=== PATIENT | female | born 1970 | race Caucasian/White ===

== ENCOUNTER 2019-10-16 17:41 | Emergency (ER) | payer BC ==
[~2019-10-16] VITALS: Ht 157.5 cm; Wt 92.1 kg
[2019-10-16] MEDS ORDERED: CLONIDINE HCL 0.2 MG TAB PO ONE (19:15)
[2019-10-16] MEDS ORDERED: CLONIDINE HCL 0.1 MG TAB ONE (19:22)
--- NOTE | 2019-10-16 21:20 | NUR ---
DC'D IVSL WITHOUT DIFF. NO BLEEDING/REDNESS/SWELLING TO SITE. CATH INTACT.
[2019-10-16 21:24] VITALS: BP 183/84
== END 2019-10-16 21:21 | disposition home or self-care (01) ==
LOC: FSED 17:41
DX: R30.0 Dysuria (principal); N30.91 Cystitis, unspecified with hematuria; I10 Essential (primary) hypertension
CPT/HCPCS: 80048; 81003; 85025; 87086; 99284